=== PATIENT | male | born 1995 | race Caucasian/White ===

== ENCOUNTER 2019-02-20 01:36 | Emergency (ER) | payer MEDICAID, OTHER ==
[~2019-02-20] VITALS: Ht 185.4 cm; Wt 112.0 kg
[2019-02-20 04:08] VITALS: BP 128/74
[2019-02-20] MEDS ORDERED: ACETAMINOPHEN/CODEINE#3 (300/30mg) TAB PO ONE (04:15)
== END 2019-02-20 04:55 | disposition home or self-care (01) ==
LOC: ER 01:44
DX: S00.83XA Contusion of other part of head, initial encounter (principal); M62.838 Other muscle spasm; G44.209 Tension-type headache, unspecified, not intractable; M54.2 Cervicalgia; V49.9XXA Car occupant (driver) (passenger) injured in unspecified traffic accident, initial encounter; Y93.89 Activity, other specified; Y92.89 Other specified places as the place of occurrence of the external cause; Y99.8 Other external cause status
CPT/HCPCS: 70450; 72125